=== PATIENT | male | born 1985 | race Caucasian/White ===

== ENCOUNTER 2020-11-13 21:40 | Emergency (ER) | payer MEDICAID ==
[~2020-11-13] VITALS: Ht 172.7 cm; Wt 68.9 kg
[2020-11-13 21:40] VITALS: BP 128/83
--- NOTE | 2020-11-13 21:45 | NUR ---
PT. IS A 35 Y/O MALE THAT CAME INTO ED WITH C/O OF CHEST PAIN. PT. STATES HE WAS SITTING DOWN WHEN THE FEELING OF "PRESSURE AND PAIN" ON HIS CHEST STARTED 30 MINS. AGO. PT. STATES HIS PAIN AT A 6/10 ON THE PAIN SCALE AT THIS TIME. DENIES N/V/D/FEVER. SKIN IS PINK/WARM/DRY; AAOX4 WITH EVEN AND STEADY GAIT; LUNGS CLEAR BL; HR EVEN AND REGULAR; PT DENIES ANY FEVER, CP, SOB, OR COUGH AT THIS TIME; VSS; PATIENT POSITIONED FOR COMFORT; HOB ELEVATED; BEDRAILS UP X2; BED DOWN. ER MD MADE AWARE OF PT STATUS.
--- NOTE | 2020-11-13 21:50 | NUR ---
PT AMBULATORY TO BED
--- NOTE | 2020-11-13 21:58 | NUR ---
ATTEMPTED EKG FOR PT, SHAKING TOO MUCH TO OBTAIN ACCURATE EKG. DR VANN ADVISED TO WAIT UNTIL PT WAS CALMER TO ATTEMPT ANOTHER EKG.
--- NOTE | 2020-11-13 22:15 | NUR ---
PT. LAYING COMFORTABLY ON BED, VOICES NO COMPLAINTS. WILL CONTINUE TO MONITOR
[2020-11-13] MEDS ORDERED: KETOROLAC 60 MG/2 ML VIAL IM ONE (22:45)
[2020-11-13] MEDS ORDERED: IBUP-2213 PO (23:13)
[2020-11-13 23:52] VITALS: BP 128/83
== END 2020-11-13 23:52 | disposition home or self-care (01) ==
LOC: MED 21:40
DX: R07.9 Chest pain, unspecified (principal); F17.210 Nicotine dependence, cigarettes, uncomplicated
CPT/HCPCS: 93005; 96372; 99283; J1885

== ENCOUNTER 2023-02-25 07:56 | Emergency (ER) | payer MEDICAID ==
[~2023-02-25] VITALS: Ht 172.7 cm; Wt 59.0 kg
[~2023-02-25 07:56] MED LIST: IBUP-2213 PO
[2023-02-25 08:02] VITALS: BP 118/76; PULSE 80; RESP 18; TEMP 97.9; O2SAT 99
[2023-02-25] MEDS ORDERED: FAMO-92 PO (08:29)
[2023-02-25] MEDS ORDERED: ACET-10509 PO (08:30)
[2023-02-25] MEDS ORDERED: ACETAMINOPHEN 325 MG TAB PO ONE (08:30)
[2023-02-25] MEDS ORDERED: ALUMINUM HYD/MAG/SIMETHICONE 30 ML UDC PO ONE (08:30)
[2023-02-25] MEDS ORDERED: FAMOTIDINE 20 MG TAB PO ONE (08:30)
[2023-02-25 09:34] VITALS: BP 118/76; PULSE 80; RESP 18; TEMP 97.9
[2023-02-25 09:36] VITALS: O2SAT 99
[2023-02-25 09:48] LABS: FLU A ANTIGEN negative (NEGATIVE); FLU B ANTIGEN NEGATIVE (NEGATIVE)
== END 2023-02-25 09:37 | disposition home or self-care (01) ==
LOC: MED 07:56
DX: B34.9 Viral infection, unspecified (principal); Z20.822 Contact with and (suspected) exposure to COVID-19; K29.70 Gastritis, unspecified, without bleeding; F17.200 Nicotine dependence, unspecified, uncomplicated; Z79.899 Other long term (current) drug therapy; Z79.1 Long term (current) use of non-steroidal anti-inflammatories (NSAID)
CPT/HCPCS: 99284

== ENCOUNTER 2023-07-01 01:03 | Emergency (ER) | payer MEDICAID ==
[~2023-07-01] VITALS: Ht 170.2 cm; Wt 66.7 kg
[~2023-07-01 01:03] MED LIST changes: +ACET-10509 PO; +FAMO-92 PO
[2023-07-01 01:18] VITALS: BP 108/66; PULSE 86; RESP 18; TEMP 97.1; O2SAT 97
[2023-07-01 02:00] LABS: APPEARANCE,URINE CLEAR (CLEAR); BILIRUBIN,URINE NEGATIVE (NEGATIVE); BLOOD, URINE NEGATIVE (NEGATIVE); COLOR,URINE YELLOW (YELLOW); LEUKOCYTE ESTERASE ,URINE NEGATIVE (NEGATIVE); NITRITE, URINE NEGATIVE (NEGATIVE); PROTEIN,URINE NEGATIVE (NEGATIVE); UGLUCOSE NEGATIVE (NEGATIVE); UROBILINOGEN,URINE 0.2 EU/dL (0.2 - 1)
[2023-07-01 02:01] LABS: BASOPHILS # (AUTO) 0.1 K/uL (0.00-0.22); BASOPHILS % (AUTO) 0.7 % (0.0-2.0); EOSINOPHILS # (AUTO) 0.3 K/uL (0-0.4); HEMATOCRIT 38.3 % (36-52); HEMOGLOBIN 12.8 g/dL (12.0-18.0); LYMPHOCYTES # (AUTO) 2.3 K/uL (2.0-11.5); LYMPHOCYTES % (AUTO) 20.9 % (20.5-51.1); MEAN CORPUSCULAR HEMOGLOBIN 28 pg (27-31); MEAN CORPUSCULAR HGB CONC 34 g/dL (33-37); MEAN CORPUSCULAR VOLUME 83.8 fL (80-94); MONOCYTES # (AUTO) 1.2 K/uL (0.8-1.0); MONOCYTES % (AUTO) 10.3 % (1.7-9.3); NEUTROPHILS # (AUTO) 7.3 K/uL (1.8-7.7); NEUTROPHILS % (AUTO) 65.1 % (42.2-75.2); PLATELET COUNT (AUTO) 214 K/uL (140-450); RED BLOOD CELL COUNT(AUTO) 4.57 MIL/uL (4.20-6.10); RED CELL DISTRIBUTION WIDTH 14.4 % (11.6-13.7); WHITE BLOOD COUNT (AUTO) 11.2 K/uL (4.8-10.8)
[2023-07-01 02:13] LABS: ANION GAP 13.1 (8-16); CALCIUM 8.5 mg/dL (8.5-10.1); CARBON DIOXIDE 24.5 mmol/L (21-32); CREATININE 0.9 mg/dL (0.6-1.3); POTASSIUM 3.6 mmol/L (3.5-5.1)
[2023-07-01 03:59] VITALS: BP 108/66; PULSE 86; RESP 18; TEMP 97.1; O2SAT 97
== END 2023-07-01 03:52 | disposition home or self-care (01) ==
LOC: MED 01:03
DX: N50.3 Cyst of epididymis (principal); N43.3 Hydrocele, unspecified; Z79.899 Other long term (current) drug therapy
CPT/HCPCS: 36415; 76870; 80048; 81003; 83605; 85025; 99284; Q0092